=== PATIENT | female | born 1995 ===

== ENCOUNTER 2017-08-03 22:53 | Emergency (ER) | payer OTHER ==
[2017-08-04 00:38] LABS: HIV (1/2) Antibody/Antigen Non-Reactive (NonReactive); HIV 1/2 INDEX 0.14 S/CO (<1.00); Hep C IgG Ab Non-Reactive (NonReactive); Hep C Index 0.14 S/CO (0-0.79)
[2017-08-04 01:25] LABS: HBSAB Concentration 738.56 mIU/mL; Hep B Surf AB Reactive (NonReactive)
== END 2017-08-03 23:39 | disposition home or self-care (01) ==
LOC: ERS 22:53
DX: S61.231A Puncture wound without foreign body of left index finger without damage to nail, initial encounter (principal); W46.1XXA Contact with contaminated hypodermic needle, initial encounter; Y92.89 Other specified places as the place of occurrence of the external cause; Y99.0 Civilian activity done for income or pay
CPT/HCPCS: 86706; 86803; 87389; 99283

== ENCOUNTER 2017-11-02 05:48 | Emergency (ER) | payer OTHER ==
[2017-11-02] MEDS ORDERED: diphenhydrAMINE 50 MG/ML VIAL ONE (06:07)
[2017-11-02] MEDS ORDERED: Ketorolac Tromethamine 30 MG/ML VIAL ONE (06:07)
[2017-11-02] MEDS ORDERED: Metoclopramide HCl 10 MG/2 ML VIAL ONE (06:07)
[2017-11-02 06:16] LABS: #Basophils 0.1 thou/uL (0.0-0.2); #Eosinphils 0.4 thou/uL (0.0-0.7); #Lymphocytes 1.6 thou/uL (1.20-3.40); #Monocytes 0.6 thou/uL (0.11-0.59); #Neutrophils 5.7 thou/uL (1.40-6.50); %Basophils 1.7 % (0.0-1.0); %Eosinophils 4.7 % (0.0-10.0); %Lymphocytes 19.2 % (21.0-51.0); %Neutrophils 67.4 % (42.0-75.0); Hemoglobin 13.5 g/dL (12.0-16.0); Mean Corpuscular HGB CONC 34.4 g/dL (32.0-36.0); Mean Corpuscular Hemoglobin 29.9 pg (27.0-31.0); Mean Corpuscular Volume 86.8 fL (78.0-98.0); Mean Platelet Volume 9.7 fL (7.4-10.4); Platelet Count 232 thou/uL (130-400); RBC Distribution Width 11.8 % (11.5-14.5); Red Blood Cell (RBC) Count 4.53 mill/uL (4.20-5.40); White Blood Cell (WBC) Count 8.5 thou/uL (4.8-10.8)
[2017-11-02 06:24] LABS: ALT (SGPT) 20 U/L (8-55); AST (SGOT) 20 U/L (5-34); Albumin 4.7 g/dL (3.5-5.0); Alkaline Phosphatase 72 U/L (40-150); Anion Gap 14 mmol/L (10-20); BUN (Urea Nitrogen) 15 mg/dL (7.0-18.7); Bilirubin, Total 0.4 mg/dL (0.2-1.2); Calc. Creatinine Clearance 0 mL/min (70-130); Calcium 10.3 mg/dL (7.8-10.44); Carbon Dioxide 24 mmol/L (22-29); Chloride 105 mmol/L (98-107); Estimated GFR-MDRD Greater than 90; Globulin 3.5 g/dL (2.4-3.5); Glucose 105 mg/dL (70-105); Potassium 4.1 mmol/L (3.5-5.1); Protein, Total 8.2 g/dL (6.0-8.3); Sodium 139 mmol/L (136-145)
[2017-11-02 06:36] LABS: Bilirubin Negative (Negative); Blood, Urine Negative (Negative); Clarity Clear (Clear); Glucose, Urine (Dipstick) Negative (Negative); Leukocyte Negative (Negative); Nitrite Negative (Negative); Protein, Urine (Dipstick) Negative (Neg-Trace); Specific Gravity, Urine 1.025 (1.005-1.030); Urobilinogen 0.2 mg/dL (0.2-1.0)
[2017-11-02 06:37] LABS: Pregnancy Test - Urine (BHCG) Negative (Negative); Pregu Control Background? CLEAR/WHITE (CLR/WHITE); Pregu Control Bar Appear? YES (CONTROL BAR); Specific Gravity 1.025 (1.002-1.036)
[2017-11-02] MEDS ORDERED: Pantoprazole 40 MG VIAL ONE (07:45)
[2017-11-02] MEDS ORDERED: Promethazine HCl 25 MG/ML VIAL ONE (07:45)
== END 2017-11-02 09:03 | disposition home or self-care (01) ==
LOC: SCSER 05:48
DX: E86.0 Dehydration (principal); K21.9 Gastro-esophageal reflux disease without esophagitis; F32.9 Major depressive disorder, single episode, unspecified; Z79.899 Other long term (current) drug therapy
CPT/HCPCS: 80053; 81003; 81025; 83690; 85025; 96365; 96367; 96375; C9113; J1200; J1885; J2550; J2765

== ENCOUNTER 2017-12-24 14:24 | Emergency (ER) | payer OTHER ==
[~2017-12-24 14:24] MED LIST: Gadobenate Dimeglumine 529 MG/1 ML (20ML VIAL) ONE
[2017-12-24] MEDS ORDERED: Ondansetron HCl/PF 4 MG/2 ML Vial ONE ×2 (14:28→14:29)
[2017-12-24] MEDS ORDERED: Promethazine HCl 25 MG/ML VIAL ONE (14:41)
[2017-12-24] MEDS ORDERED: diphenhydrAMINE 50 MG/ML VIAL ONE (14:52)
[2017-12-24 15:30] LABS: #Basophils 0.1 thou/uL (0.0-0.2); #Eosinphils 0.2 thou/uL (0.0-0.7); #Lymphocytes 2.6 thou/uL (1.20-3.40); #Monocytes 0.5 thou/uL (0.11-0.59); #Neutrophils 6.3 thou/uL (1.40-6.50); %Eosinophils 2.5 % (0.0-10.0); %Lymphocytes 26.5 % (21.0-51.0); %Monocytes 5.3 % (0.0-10.0); %Neutrophils 64.7 % (42.0-75.0); Hemoglobin 13.2 g/dL (12.0-16.0); Mean Corpuscular HGB CONC 33.9 g/dL (32.0-36.0); Mean Corpuscular Hemoglobin 30.4 pg (27.0-31.0); Mean Corpuscular Volume 89.7 fL (78.0-98.0); Mean Platelet Volume 8.4 fL (7.4-10.4); Platelet Count 290 thou/uL (130-400); RBC Distribution Width 12.5 % (11.5-14.5); Red Blood Cell (RBC) Count 4.35 mill/uL (4.20-5.40); White Blood Cell (WBC) Count 9.7 thou/uL (4.8-10.8)
[2017-12-24 15:38] LABS: BHCG - Serum Negative (NEGATIVE); Pregs Control Background? CLEAR/WHITE (CLR/WHITE); Pregs Control Bar Appear? YES (CONTROL BAR)
[2017-12-24 15:43] LABS: ALT (SGPT) 15 U/L (8-55); AST (SGOT) 15 U/L (5-34); Albumin 4.8 g/dL (3.5-5.0); Alkaline Phosphatase 75 U/L (40-150); Anion Gap 14 mmol/L (10-20); BUN (Urea Nitrogen) 16 mg/dL (7.0-18.7); Bilirubin, Total 0.5 mg/dL (0.2-1.2); Calc. Creatinine Clearance 0 mL/min (70-130); Calcium 10.2 mg/dL (7.8-10.44); Carbon Dioxide 23 mmol/L (22-29); Chloride 105 mmol/L (98-107); Estimated GFR-MDRD Greater than 90; Globulin 3.3 g/dL (2.4-3.5); Glucose 91 mg/dL (70-105); Potassium 3.8 mmol/L (3.5-5.1); Protein, Total 8.1 g/dL (6.0-8.3); Sodium 138 mmol/L (136-145)
--- NOTE | 2017-12-24 17:10 | MRI ---
MRI OF BRAIN WITH AND WITHOUT IV CONTRAST: 12/24/17 HISTORY: 22-year-old female with dizziness, nausea, vomiting. FINDINGS: No evidence of infarct, hemorrhage, mass, midline shift or abnormal extra-axial fluid collections are seen. The ventricular size is normal and the basilar cisterns patent. No restricted diffusion is see n. No blood products are noted on the gradient echo sequences. No signal abnormalities are seen on th e highly sensitive FLAIR images. There is linear enhancement in the right cerebral hemisphere consist ent with DVA/venous angioma. No associated cavernoma is seen. The visualized paranasal sinuses and ma stoid air cells are well aerated. IMPRESSION: Normal exam. This exam was interpreted in consultation with Dr Dante Duarte (neurorad) who concurs. POS: [facility]
== END 2017-12-24 17:07 | disposition home or self-care (01) ==
LOC: ERS 14:24
DX: R27.0 Ataxia, unspecified (principal); R42 Dizziness and giddiness; R11.2 Nausea with vomiting, unspecified; K21.9 Gastro-esophageal reflux disease without esophagitis
CPT/HCPCS: 70553; 80053; 84703; 85025; 93005; 94760; 96365; 96375; A9579; J1200; J2405; J2550

== ENCOUNTER 2018-03-21 10:27 | Outpatient (CLI) | payer OTHER ==
--- NOTE | 2018-03-21 12:27 | RAD ---
CHEST TWO VIEWS: History: 22-year-old female with history of asthma. Cough for two months, getting worse. Comparison: 10-28-15 FINDINGS: There is some very subtle alveolar parenchymal changes in the right upper lung zone, possibly some ve ry mild pneumonitis or very minimal subsegmental atelectasis. Heart size is normal. The left lung is clear. No confluent lobar pneumonia. IMPRESSION: Very minimal alveolar nodular parenchymal changes in the right upper lobe, evidence for minimal upper lobe pneumonitis versus mild subsegmental atelectasis. These changes are new when compared to the pr ior 10-28-15 study. Recommend treatment for pneumonia and follow up for complete clearing. POS: [facility]
== END 2018-03-21 10:28 | disposition home or self-care (01) ==
LOC: BICRAD 10:27
PROVIDERS: ATTEND Internal Medicine
DX: J45.909 Unspecified asthma, uncomplicated (principal)
CPT/HCPCS: 71046